=== PATIENT | female | born 1990 | race Caucasian/White ===

== ENCOUNTER 2017-07-01 06:06 | Day surgery (SDC) | payer BC ==
[2017-07-01 07:05] LABS: ADD MAN DIFF? NO
[2017-07-01 07:14] LABS: BASO % 1 % (0-3); EOS # 0.2 x10^3/uL (0.0-0.7); EOS % 2 % (0-3); HEMATOCRIT 37.4 % (36.0-47.0); HEMOGLOBIN 12.5 g/dL (12.0-15.5); LYMPH # 2.3 x10^3/uL (1.0-4.8); LYMPH % 29 % (24-48); MEAN CORPUSCULAR HEMOGLOBIN 30 pg (25-35); MEAN CORPUSCULAR HGB CONC 34 g/dL (31-37); MEAN CORPUSCULAR VOLUME 91 fL (79-100); MONO # 0.6 x10^3/uL (0.0-1.1); MONO % 8 % (0-9); NEUT # 4.7 x10^3uL (1.8-7.7); NEUT % 60 % (31-73); PLATELET COUNT 310 x10^3/uL (140-400); RED BLOOD COUNT 4.13 x10^6/uL (3.50-5.40); WHITE BLOOD COUNT 7.8 x10^3/uL (4.0-11.0)
[2017-07-01] MEDS: IV RINGERS,LACTATED 1000ML 1,000 ML IV ×2 (07:18→07:39)
[2017-07-01 07:23] LABS: ANION GAP 11 (6-14); BLOOD UREA NITROGEN 14 mg/dL (7-20); CALCIUM 8.5 mg/dL (8.5-10.1); CARBON DIOXIDE 26 mmol/L (21-32); CHLORIDE 105 mmol/L (98-107); CREATININE 0.8 mg/dL (0.6-1.0); GLUCOSE 91 mg/dL (70-99); POTASSIUM 4.3 mmol/L (3.5-5.1); SODIUM 142 mmol/L (136-145)
[2017-07-01 07:26] LABS: NEG OBC UR NEG; POS OBC UR POS
[2017-07-01 07:27] LABS: U PREG PATIENT NEGATIVE (NEG)
[2017-07-01 07:28] LABS: ALBUMIN 3.5 g/dL (3.4-5.0); TOTAL BILIRUBIN 0.3 mg/dL (0.2-1.0)
[2017-07-01] MEDS ORDERED: ONDANSETRON PF 4 MG/2 ML VIAL. IV (07:45)
[2017-07-01] MEDS ORDERED: fentaNYL PF VIAL 100 MCG/2 ML VIAL IV (07:45)
[2017-07-01] MEDS ORDERED: LIDOCAINE 1% PF 2 ML VIAL. ID (07:45)
[2017-07-01] MEDS ORDERED: GLUCAGON,HUMAN RECOMBINANT 1 MG/ML VIAL. (07:47)
[2017-07-01] MEDS ORDERED: MIDAZOLAM HCL/PF 2 MG/2 ML VIAL. (07:48)
[2017-07-01] MEDS ORDERED: fentaNYL PF VIAL 250 MCG/5 ML VIAL (07:48)
[2017-07-01] MEDS ORDERED: ROCURONIUM 50 MG/5 ML VIAL. ×2 (07:48→08:38)
[2017-07-01] MEDS ORDERED: SURGICEL HEMOSTAT 4X8 EACH. (07:48)
[2017-07-01] MEDS: BUPIVACAINE MPF 0.5% 30 ML VIAL. (08:18)
[2017-07-01] MEDS: IOHEXOL 300 MG/ML 100ML VIAL. (08:18)
[2017-07-01] MEDS ORDERED: DEXAMETHASONE SOD PHOS 20 MG/5 ML VIAL. (08:42)
[2017-07-01] MEDS ORDERED: ONDANSETRON PF 4 MG/2 ML VIAL. (08:43)
[2017-07-01] MEDS ORDERED: SEVOFLURANE 61 TO 120 MINUTES. IH (08:43)
[2017-07-01] MEDS ORDERED: PROPOFOL 20 ML IV (08:43)
[2017-07-01] MEDS ORDERED: LIDOCAINE 2% PF Vial for OR 5 ML VIAL. (08:43)
[2017-07-01] MEDS ORDERED: NEOSTIGMINE METHYLSULFATE 5 MG/5 ML SYRINGE. (08:58)
[2017-07-01] MEDS ORDERED: GLYCOPYRROLATE 1 MG/5 ML VIAL. (08:59)
[2017-07-01] MEDS: fentaNYL PF VIAL 100 MCG/2 ML VIAL IV ×2 (09:31→09:47)
[2017-07-01] MEDS: PROCHLORPERAZINE 10 MG/2 ML VIAL. IV (09:31)
[2017-07-01] MEDS: MORPHINE SULFATE 2 MG/ML DISP.SYRIN. IV ×2 (09:38→10:02)
[2017-07-01] MEDS: HYDROmorphone 2 MG/ML VIAL IV ×3 (10:15→10:53)
[2017-07-01] MEDS: oxyCODONE/APAP 5/325 1 TAB TABLET PO (10:53)
== END 2017-07-01 12:25 | disposition home or self-care (01) ==
LOC: SURG 06:06
DX: K80.10 Calculus of gallbladder with chronic cholecystitis without obstruction (principal); K82.4 Cholesterolosis of gallbladder; E03.9 Hypothyroidism, unspecified; Z86.69 Personal history of other diseases of the nervous system and sense organs; Z86.39 Personal history of other endocrine, nutritional and metabolic disease; J45.909 Unspecified asthma, uncomplicated; Z72.89 Other problems related to lifestyle
CPT/HCPCS: 36415; 74300; 80048; 81025; 82040; 82247; 85025; 88304; C1769; J0690; J0780; J1100; J1170; J1610; J2250; J2270; J2405; J2704; J2710; J3010; J3490; J7030; J7120; Q9967